=== PATIENT | female | born 1965 | race Caucasian/White ===

== ENCOUNTER → 2016-09-14 | Day surgery (SDC) | payer BC ==
[~2016-09-14] VITALS: Ht 182.8 cm; Wt 63.5 kg
[~2016-09-14] MED LIST: ZOLOFT25 MG PO
--- NOTE | ~2016-09-14 | O ---
[place], [place] OPERATIVE NOTE NAME: PETE VALDEZ UNIT #: [id number] ROOM: DOCTOR: JANES BIRD MD BIRTHDATE: [birth year] DOS: 09/14/2016 The patient is 50 years old who has presented with chief complaint of concern about colonic screening, undergoing investigation. ALLERGIES: No known medication. FAMILY HISTORY: Noncontributory. PAST SURGICAL HISTORY: Hysterectomy. PAST MEDICAL HISTORY: The rectal prolapse, vaginoplasty, bladder sling. SOCIAL HISTORY: Nonsmoker, nonalcohol consumer. PROCEDURE: Today's procedure part of investigation is colonoscopy plus removal of suture line from rectal pouch plus biopsy. PREMEDICATION: Versed and Diprivan. SCOPE: Olympus forward-viewing colonoscope 10L video. REPORT: After putting the patient in the left lateral position and after application of lubricant to the scope, the scope was introduced. Thereafter, under direct visualization, I advanced through the length of colon without difficulty. Base of the cecum explored, appendiceal orifice identified, and ileocecal valve was defined. Scope was gradually withdrawn back from ascending, transverse, descending colon back to the rectal pouch. There is evidence of previous rectal prolapse repair with multiple penetrated sutures. Sutures were removed to prevent micro ulceration at the site as well as continuous blood loss. Otherwise, the patient tolerated the procedure well. IMPRESSION: Colonoscopy plus biopsy of the rectal surgical site of rectal prolapse repair and penetrated suture removal. PLAN: High-fiber fruit diet. ACTIVITY: Ad leah. FOLLOWUP: Routinely with you in office, p.r.n. visit with us in [facility]. I thank you very much indeed for your kind referral. [place], [place] OPERATIVE NOTE NAME: PETE VALDEZ UNIT #: [id number] ROOM: DOCTOR: JANES BIRD MD BIRTHDATE: [birth year] JANES BIRD MD CM:OPRECORD:OPERATIVE NOTE [id number] JANES BIRD MD 09/14/16940 interface
[2016-09-14 07:19] VITALS: BP 91/48
[2016-09-14 08:35] VITALS: BP 81/32
[2016-09-14 08:50] VITALS: BP 81/39
[2016-09-14 08:59] VITALS: BP 102/72
[2016-09-14 09:05] VITALS: BP 103/58
== END | disposition home or self-care (01) ==
LOC: SDC 09-08 09:30
DX: Z12.11 Encounter for screening for malignant neoplasm of colon (principal); T18.5XXA Foreign body in anus and rectum, initial encounter; Z90.710 Acquired absence of both cervix and uterus; F32.9 Major depressive disorder, single episode, unspecified; Z98.51 Tubal ligation status; Z98.890 Other specified postprocedural states; X58.XXXA Exposure to other specified factors, initial encounter; Y93.89 Activity, other specified; Y92.89 Other specified places as the place of occurrence of the external cause; Y99.8 Other external cause status

== ENCOUNTER → 2018-08-23 | Outpatient (CLI) | payer BC | END | disposition home or self-care (01) | LOC: US 06:26 | DX: R10.31 Right lower quadrant pain (principal); Z90.710 Acquired absence of both cervix and uterus; Z90.721 Acquired absence of ovaries, unilateral ==

== ENCOUNTER → 2024-02-05 | Outpatient (CLI) | payer BC | END | disposition home or self-care (01) | LOC: RAD 09:16 | PROVIDERS: ATTEND Registered Nurse | DX: M25.551 Pain in right hip (principal) ==